=== PATIENT | female | born 1995 | race Caucasian/White ===

== ENCOUNTER → 2021-03-23 | Outpatient (CLI) | payer BC, SELFPAY | LOC: NM 08:04 | DX: R70.0 Elevated erythrocyte sedimentation rate (principal) | CPT/HCPCS: 78306; A9503 ==

== ENCOUNTER → 2022-06-25 | Outpatient (CLI) | payer BC | LOC: KOH-I 09:35 | DX: M54.41 Lumbago with sciatica, right side (principal) | CPT/HCPCS: 72100 ==